=== PATIENT | female | born 1940 | race Caucasian/White ===

== ENCOUNTER 2016-07-15 15:55 | Emergency (ER) | payer OTHER ==
[2016-07-15 17:26] LABS: MANUAL DIFF NEEDED? NO
[2016-07-15 17:28] LABS: URINE CULTURE NEEDED? NO; URINE MICRO REVIEW NEEDED? NO; URINE SOURCE CLEAN CATCH
[2016-07-15 17:32] LABS: BASO% 0.8 % (0.0-0.8); EOS# 0.14 X1000 (0.0-0.7); EOS% 1.9 % (0.0-10.0); HEMATOCRIT 38.4 % (37.0-47.0); HEMOGLOBIN 13.1 g/dL (12.0-16.0); LYMPH# 1.94 X1000 (1.2-3.4); LYMPH% 26.4 % (20.5-51.1); MCH 31.9 PG (27-31); MCHC 34.1 g/dL (33-37); MCV 93.4 FL (81-99); MONO# 0.62 X1000 (0.11-0.59); MONO% 8.4 % (1.7-9.3); MPV 12.6 FL (7.4-10.4); NEUT% 62.5 % (42.2-75.2); PLT 219 X1000 (130-400); RBC 4.11 XMIL (4.2-5.4)
[2016-07-15 17:33] LABS: BILIRUBIN URINE NEGATIVE (NEGATIVE); BLOOD URINE NEGATIVE (NEGATIVE); COLOR STRAW; GLUCOSE URINE NEGATIVE (NEGATIVE); LEUKOCYTES URINE NEGATIVE (NEGATIVE); NITRITE URINE NEGATIVE (NEGATIVE); PROTEIN URINE NEGATIVE (NEGATIVE); SP GRAVITY URINE 1.004; TURBIDITY URINE CLEAR (CLEAR); UROBILINOGEN URINE NORMAL (NORMAL)
[2016-07-15 17:37] LABS: UR EPITHELIAL CELLS <10 /HPF (<10); URINE BACTERIA NEGATIVE /HPF; URINE RBC <10 /HPF (<10); URINE WBC <10 /HPF (<10)
[2016-07-15 17:40] LABS: INR 1.02; PROTIME 10.7 Seconds (9.2-11.7); PTT 25.1 Seconds (22.0-36.0)
--- NOTE | 2016-07-15 17:40 | PROVIDER DOCUMENTATION ---
HPI-Neurological Disorder - General Source: patient - History of Present Illness-Neuro Severity: reports: mild Onset/Duration: reports: 24 hours ago (1st epsiode), this afternoon (2nd epsiode ) Timing: reports: still present Context: reports: other (L arm numbness) Character of Altered Mental Status: reports: N/A Any recent trauma/injury?: reports: none New weakness or altered sensation location:: reports: none Cognitive Baseline: alert, oriented x3 Gait Baseline: walks without assistance Associated Symptoms: reports: other (epsiodes of L arm numbness). denies: short of breath, chest pain, neck/back pain, loss of consciousness, nausea, numbness in legs/feet, seizures, tingling in legs/feet, vomiting, vision changes Similar Symptoms Previously?: Yes Recently seen or treated by another doctor?: Yes <Tia Ramos - Last Filed: 07/15/16 17:52> <Boubacar Crhistie - Last Filed: 07/15/16 19:54> - General Chief Complaint: Brain Attack Stated Complaint: LEFT ARM NUMBNESS,DAVISON Time Seen by Provider: 07/15/16 16:28 Allergies/Adverse Reactions: Patient Allergies Allergy/AdvReac Type Severity Reaction Status Date / Time No Known Allergies Allergy Verified 07/15/16 16:59 Home Medications: Home Medication List Medication Instructions Recorded Confirmed Last Taken Type LISINOpril [Prinivil] 10 mg PO BID 09/29/12 07/15/16 07/15/16 History ATORVAstatin [Lipitor] 40 mg PO QHS 04/10/15 07/15/16 07/14/16 History Aspirin 81 mg PO DAILY 04/10/15 07/15/16 07/14/16 History Letrozole [Femara] 2.5 mg PO DAILY 07/15/16 07/15/16 07/14/16 History - History of Present Illness-Neuro Nature of Presenting Problem: 75 Y/O F presents to ED cc of L arm numbness. Pt states she had an episode of L arm numbness yesterday and was seen at PCP office where blood was drawn and had an MRI done this morning. Pt states this afternoon the same episode happened where her L arm was numb. Pt states PCP told her to come to ED if happened again. Pt states the episodes does not last long when it does onset. Pt states she has had TIA in the past. Pt denies any CP/SOB/LOSS APPETITE. Pt is alert and oriented x 3 and is in no distress. (Tia Ramos) Review of Systems - Adult - REVIEW OF SYSTEMS - ADULT Constitutional: denies: chills, fever Ears, Nose, Mouth & Throat: denies: ear pain, throat pain Cardiovascular: denies: chest pain, palpitations Respiratory: denies: cough, shortness of breath Gastrointestinal: denies: abdominal pain, diarrhea, nausea, vomiting Genitourinary: denies: discharge, frequency Musculoskeletal: reports: other (episodes of L arm numbness). denies: bone pain , back pain, muscle aches Neurological: denies: dizziness/vertigo, headache/migraines <Tia Ramos - Last Filed: 07/15/16 17:52> Past History - Adult - PAST MEDICAL HISTORY-ADULT Review of Records: reports: Old Records Reviewed, Nursing Assessment Review Cardiovascular: reports: HTN, hyperlipidemia Endocrine/Immune: reports: cancer (breast ), Diabetes (diet controlled ) - PRIOR SURGERIES/PROCEDURES Surgical/Procedure History: reports: cholecystectomy, hysterectomy, other ( mastectomy ) - IMMUNIZATION STATUS Childhood Immunizations: See Nurse Assessment Flu Vaccine: See Nurse Assessment - SOCIAL HISTORY Smoking: quit greater than 1 year Substance Use: denies <Tia Ramos - Last Filed: 07/15/16 17:52> Physical Exam- Neurological - Physical Exam-Neuro Initial Vital Signs Reviewed: Yes General Appearance: appears well, alert, no apparent distress HENMT: moist mucous membranes, normal ENT inspection Head Injury: no evidence of injury Neck: non-tender, full range of motion, supple Respiratory: chest non-tender, lungs clear, normal breath sounds Cardiovascular: normal peripheral pulses, regular rate, rhythm, no edema Abdominal Exam: normal bowel sounds, non tender, soft Extremity: normal range of motion, non-tender, 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 Exam: normal hearing, normal speech Coordination/Gait: normal gait Motor/Sensory: no motor deficit, no sensory deficit, no pronator drift Neurologic: evidence technician II-XII nml as tested, grossly normal, no motor/sensory deficits Integumentary: normal color, normal turgor, warm/dry Psych/Mental Status: normal mood/affect, normal thought content, normal thought process, oriented x 3 - Glascow Coma Scale Best Eye Response: (4) open spontaneously Best Verbal Response: (5) oriented Best Motor Response: (6) obeys commands Total Glascow Score: 15 <Tia Ramos - Last Filed: 07/15/16 17:52> Progress - CT/MRI 1 MRI Study: Head Impression: Abnormal (1)mild atrophy 2)mild periventricular white matter ischemic change 2) 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 Laboratory Tests 07/15/16 07/15/16 07/15/16 15:11 15:11 17:14 WBC 7.34 RBC 4.11 L Hgb 13.1 Hct 38.4 MCV 93.4 MCH 31.9 H MCHC 34.1 RDW Std Deviation 12.8 Plt Count 219 MPV 12.6 H Immature Gran % (Auto) 0.0 Neut % (Auto) 62.5 Lymph % (Auto) 26.4 Colbert % (Auto) 8.4 Eos % (Auto) 1.9 Baso % (Auto) 0.8 Immature Gran # (Auto) 0.00 Neut # (Auto) 4.58 Lymph # (Auto) 1.94 Colbert # (Auto) 0.62 H Eos # (Auto) 0.14 Baso # (Auto) 0.06 PT 10.7 INR 1.02 PTT (Actin FS) 25.1 Urine Source CLEAN CATCH Urine Color STRAW Urine Turbidity CLEAR Urine pH 6.0 Ur Specific Gunlock 1.004 Urine Protein NEGATIVE Ur Glucose (Stick) NEGATIVE Ur Ketones (Stick) NEGATIVE Urine Blood NEGATIVE Urine Nitrite NEGATIVE Urine Bilirubin NEGATIVE Urobilinogen Dipstick NORMAL Urine Leukocytes NEGATIVE Urine WBC (Auto) <10 Urine RBC (Auto) <10 U Epithel Cells (Auto) <10 Urine Bacteria (Auto) NEGATIVE Orders Category Date Time Status Cardiac Monitoring DIRECTED Care 07/15/16 16:32 Active Finger Stick Blood Sugar (ED) DIRECTED Care 07/15/16 16:32 Active Misc. NRSG Communication Order DIRECTED Care 07/15/16 16:32 Active Saline Loc NOW Care 07/15/16 16:32 Active CHEST-PORTABLE [RAD] Stat Exams 07/15/16 16:32 Taken HEAD W/O CONTRAST [CT] Stat Exams 07/15/16 17:26 Ordered CBC WITH ELECTRONIC DIFF [HEME] Stat Lab 07/15/16 15:11 Completed COMPREHENSIVE METABOLIC PANEL [CHEM] Stat Lab 07/15/16 15:11 Received PROTIME WITH INR [COAG] Stat Lab 07/15/16 15:11 Completed PTT [COAG] Stat Lab 07/15/16 15:11 Completed TROPONIN T Stat Lab 07/15/16 15:11 Received URINALYSIS W/POSS RFLX CULT [URINALYSIS] Stat Lab 07/15/16 17:14 Completed URINE DRUG SCREEN Stat Lab 07/15/16 17:14 Received EKG [EKG] Stat Ther 07/15/16 16:32 Ordered Vital Signs - 24 hr 07/15/16 16:03 Temperature 97.9 F Pulse Rate 65 Respiratory 18 Rate Blood Pressure 151/66 O2 Sat by Pulse 99 Oximetry (Tia Ramos) Departure - Departure Time of Disposition Order: 17:52 Certified Medical Emergency: Emergent <Tia Ramos - Last Filed: 07/15/16 17:52> - Departure Certified Medical Emergency: Emergent <Boubacar Christie - Last Filed: 07/15/16 19:54> - Departure DIAGNOSIS: TIA (transient ischemic attack) Qualifiers: Transient cerebral ischemia type: unspecified Qualified Code(s): G45.9 - Transient cerebral ischemic attack, unspecified Disposition: HOME 01 Condition: Stable Additional Instructions: take a full strength aspirin every day, call to get scheduled for an echocardiogram, anfd then follow up with Dr Palacio ED Follow Up Instructions: You have been treated by a care provider in the Emergency Department. These instructions are being provided to you so you can have an understanding of how to care for yourself upon discharge. Upon discharge from the Emergency Department, you are responsible for making arrangements for follow-up care by a physician of your choice. Take all prescribed medications as directed. Return to the Emergency Department immediately for any new or worsening symptoms. You may call the Physician Referral phone number at [phone] to obtain a list of Physicians who are taking new patients. Referrals: Jose E Palacio MD [Primary Care Provider] - Attestation - Scribe Verification/Attestation Scribe:: Tia Ramos Acting as Scribe for:: Wes Govea Scribe documention review:: This chart was documented by a scribe and accurately reflects the service the provider performed and the decisions made by the provider. - Scribe Verification/Attestation #2 Shift Change Time: 18:00 Scribe Name: Rajesh Peres Acting as Scribe for:: Boubacar Christie <Tia Ramos - Last Filed: 07/15/16 17:52> Physician Attestation - Physician Attestation I, the provider, attest to the following statement:: Wes Govea Physician documentation Attestation:: This documentation recorded by the scribe accurately reflects the service I personally performed and the decisions made by me. <Tia Ramos - Last Filed: 07/15/16 17:52>
[2016-07-15 18:03] LABS: UR AMPHETAMINES QUAL NONE DETECTED (NONE DETECT); UR BARBITUATES QUAL NONE DETECTED (NONE DETECT); UR BENZODIAZEPIN QUAL NONE DETECTED (NONE DETECT); UR CANNABINOIDS QUAL NONE DETECTED (NONE DETECT); UR COCAINE QUAL NONE DETECTED (NONE DETECT); UR METHADONE QUAL NONE DETECTED (NONE DETECT); UR OPIATES QUAL NONE DETECTED (NONE DETECT); UR OXYCODONE QUAL NONE DETECTED (NONE DETECT); UR PCP QUAL NONE DETECTED (NONE DETECT)
[2016-07-15 18:05] LABS: ALBUMIN 3.9 g/dL (3.5-5.0); CALCIUM 9.8 mg/dL (8.8-10.2); TOTAL BILIRUBIN 0.46 mg/dL (0.20-1.00); TOTAL PROTEIN 7.2 g/dL (6.3-8.3)
[2016-07-15 19:32] VITALS: BP 194/83
[2016-07-15] MEDS ORDERED: ASPIRIN PO ONE (19:51)
--- NOTE | 2016-07-16 05:46 | EKG Report ---
Test Performed on : 07/15/2016 5:18:04 PM Test Reason : Stroke like symptoms Blood Pressure : / mmHG Vent. Rate : 056 BPM Atrial Rate : 056 BPM P-R Int : 142 ms QRS Dur : 084 ms QT Int : 420 ms P-R-T Axes : 050 066 057 degrees QTc Int : 405 ms Sinus bradycardia. Possible Left atrial enlargement Nonspecific ST abnormality Abnormal ECG When compared with ECG of 11-APR-2015 14:08, ST no longer elevated in Inferior leads Unconfirmed Result
--- NOTE | 2016-07-16 07:35 | Diag Imaging Result Document ---
PROCEDURE NAME: HEAD W/O CONTRAST - 07/15/[address]: A CT dose reduction protocol was used. COMPARISON: 09/29/2012. FINDINGS: There is trace periventricular white matter chronic microvascular disease. There is a small left occipital lobe infarction that is new from the prior exam but appears to be remote. No intracranial mass or hemorrhage. The skull is intact. The sinuses, mastoids, and middle ears are clear. IMPRESSION: Increasing stroke burden. [facility]
--- NOTE | 2016-07-16 09:46 | Diag Imaging Result Document ---
PROCEDURE NAME: CHEST-PORTABLE - 07/15/2016 SINGLE FRONTAL RADIOGRAPH OF THE CHEST: COMPARISON: 07/07/2016. FINDINGS: There is evidence of prior granulomatous disease, stable. The opacity at the left lung base seen previously has resolved and probably represented atelectasis. The lungs are clear otherwise. There is no definite pleural fluid collection. Cardiac silhouette and central vasculature are unremarkable. IMPRESSION: No evidence of acute pathology.
== END 2016-07-15 20:08 | disposition home or self-care (01) ==
LOC: ED 15:55
DX: G45.9 Transient cerebral ischemic attack, unspecified (principal); R20.0 Anesthesia of skin; R51 Headache; I10 Essential (primary) hypertension; E78.5 Hyperlipidemia, unspecified; Z85.3 Personal history of malignant neoplasm of breast; E11.9 Type 2 diabetes mellitus without complications; Z90.10 Acquired absence of unspecified breast and nipple; Z79.899 Other long term (current) drug therapy; Z87.891 Personal history of nicotine dependence; Z79.82 Long term (current) use of aspirin
CPT/HCPCS: 70450; 71010; 80053; 81001; 84484; 85025; 85610; 85730; 93005; G0480; 80324; 80345; 80346; 80349; 80353; 80358; 80361; 80365; 83992